=== PATIENT | female | born 1960 | race Caucasian/White ===

== ENCOUNTER 2016-12-12 13:49 | Emergency (ER) | payer BC ==
[~2016-12-12] VITALS: Ht 172.7 cm; Wt 79.8 kg
[~2016-12-12 13:49] MED LIST: ATEN50TA PO; GLIM2TAB PO; METF-380 PO; METF1000 PO; SIMV20TA3 PO; SITA1TAB2 PO; TRAM-21 PO
--- OUTSIDE RECORDS SUMMARY | 2016-12-12 13:54 | XMS REPORT | Continuity of Care Document ---
Author Author [facility] Organization [facility] Address Unknown Phone Unavailable Care Team Providers Care Parts Puller Name Role Phone NARENDRA MCCORD MD PCP Insurance Providers Payer Name Policy Number Subscriber Name Relationship [facility] [id number] Agnieszka Arzate 18 Self / Same As Patient Advance Directives Directive Response Recorded Date/Time Advance Directives No 01/15/15 10:48am Health Care Power of Senior International Tax Manager No 01/15/15 10:48am Organ Donor Yes 01/15/15 10:48am Resuscitation Status Full Code 01/15/15 10:48am Problems No known problems or medical conditions. Medications Medication Dose Route Sig Days/Qty Instructions Order Date Discontinued Date Status Simvastatin 20 Mg PO BEDTIME 07/08/11 10/17/14 Discontinued Atenolol 50 Mg PO BEDTIME 07/08/11 Active Sitagliptin Phos/Metformin Hcl 1 Each PO DAILY WITH SUPPER 07/08/11 10/17/14 Discontinued Metformin HCl (Glucophage) 1 Each PO TWICE A DAY WITH MEALS 0 Qty 10/1701/12/15 Discontinued Glimepiride 2 Mg PO DAILY 0 Qty 10/17/14 01/12/15 Discontinued Metformin Hcl 1,000 Mg PO TWICE A DAY 01/12/15 Active Glimepiride 2 Mg PO DAILY 01/12/15 Active Tramadol Hcl 100 Mg PO EVERY 12 HOURS 20 Qty 01/15/15 Active Social History Social History Problem Response Recorded Date/Time Alcohol Use Occasionally Uses 01/15/2015 10:48am Recreational Drug Use No 01/15/2015 10:48am Recent Foreign Travel No 01/15/2015 10:48am Hospitalization with Isolation Denies 01/15/2015 6:39pm Smoking Status Never a Smoker 01/15/2015 10:47am Query Response Start Date Stop Date Smoking Status Never a Smoker Hospital Discharge Instructions No hospital discharge instructions. Plan of Care No plan of care. Functional Status No functional status results. Allergies, Adverse Reactions, Alerts Allergen Type Severity Reaction Status Last Updated clavulanic acid ([id number]) Allergy Unknown Active 10/08/06 amoxicillin ([id number]) Allergy Unknown Active 10/08/06 IV Dye Adverse Reaction Unknown HIVES Active 01/15/15 Immunizations Name Given Type Date of Pneumonia Vaccine 10/12/10 Historical Vital Signs Acute Vital Signs Vital Response Date/Time Temperature (Fahrenheit) 96.8 degrees F (97.6 - 99.5) Temperature (Calculated Celsius) 36.79365 degrees C (36.4 - 37.5) Temperature Source Tympanic Pulse Rate (adult) 65 bpm (60 - 90) Respiratory Rate 18 bpm (12 - 24) O2 Sat by Pulse Oximetry 96 % (88 - 100) Blood Pressure 138/89 mm Hg Height (Feet) 5 feet Height (Inches) 9.00 inches Height (Calculated Centimeters) 175.114909 cm Weight (Pounds) 183 pounds Weight (Calculated Grams) 97859.405 gm Weight (Calculated Kilograms) 83.688236 kilograms Calculated BMI 30.45 Results Laboratory Results Test Name Result Units Flags Reference Collection Date/Time Result Date/ Time Comments Glucometer 178 MG/DL H 70-110 01/15/2015 1:30pm 01/15/2015 1:40pm Procedures Procedure Status Date Provider(s) Excision of mass completed 01/15/15 ROSALINO SIMMS MD Encounters Encounter Location Date/Time Registered [facility] Day [facility] 01/15/15 9:50am Registered Clinic [facility] 01/12/15 10:00am Registered Clinic [facility] 01/11/15 8:07am
[2016-12-12] MEDS ORDERED: LINA5TAB PO (15:29)
[2016-12-12] MEDS ORDERED: SIMV20TA3 PO (15:29)
--- NOTE | 2016-12-12 17:04 | ED Cough/URI ---
General Chief Complaint: Cough/Cold/Flu Symptoms Stated Complaint: FLU SYMPTOMS Nursing Triage Note: ON 12/09 PT DEVELOPED A NONPRODUCTIVE COUGH. PT ALSO C/O BODY ACHES. PT HAS TRIED MUCINEX AND ASA AT HOME WITHOUT RELIEF. History of Present Illness Time seen by provider: 17:01 Initial Comments Social white female presents with nonproductive persistent cough with associated myalgias and nasal congestion for the last 2 days. The patient denies associated nausea, vomiting, dysuria, shortness of breath, chest pain, or headache stiff neck. Past medical history includes previous surgeries for hysterectomy appendectomy and cholecystectomy. Allergies and Home Medications Allergies Coded Allergies: amoxicillin (Verified Allergy, Unknown, 10/08/06) clavulanic acid (Verified Allergy, Unknown, 10/08/06) Uncoded Allergies: IV Dye (Adverse Reaction, Unknown, HIVES, 01/15/15) Home Medications Atenolol 50 Mg Tablet 50 MG PO HS (Reported) Glimepiride 2 Mg Tablet 2 MG PO DAILY (Reported) Linagliptin 5 Mg Tablet 5 MG PO DAILY (Reported) Metformin Hcl 1,000 Mg Tablet 1,000 MG PO BID (Reported) Simvastatin 20 Mg Tablet 20 MG PO DAILY (Reported) Constitutional: fever weakness EENTM: No ear pain, No eye pain Respiratory: see HPI coughNo short of breath Cardiovascular: No chest pain Gastrointestinal: No abdominal pain, No diarrhea, No nausea, No vomiting Genitourinary: No dysuria, No hematuria Musculoskeletal: No back pain, muscle pain Skin: No rash Psychiatric/Neurological: No Symptoms Reported Hematologic/Lymphatic: No Symptoms Reported Immunological/Allergic: no symptoms reported Past Uuaoohl-Ugcxbi-Orxros Hx Patient Social History Alcohol Use: Rarely Uses Recreational Drug Use: No Smoking Status: Never a Smoker 2nd Hand Smoke Exposure: No Recent Foreign Travel: No Contact w/Someone Who Travel: No Recent Infectious Disease Expo: No Recent Hopitalizations: No Immunizations Up To Date Date of Pneumonia Vaccine: Oct 12, 2010 Surgeries HX Surgeries: Yes Surgeries: Appendectomy, Gallbladder, Hysterectomy Respiratory Hx Respiratory Disorders: No Cardiovascular Hx Cardiac Disorders: Yes Neurological Hx Neurological Disorders: No Reproductive System Hx Reproductive Disorders: No Genitourinary Hx Genitourinary Disorders: No Gastrointestinal Hx Gastrointestinal Disorders: Yes (GALLBLADDER AND APPENDIX TAKEN OUT) Musculoskeletal Hx Musculoskeletal Disorders: No Endocrine Hx Endocrine Disorders: Yes Endocrine Disorders: Diabetes, Non-Insulin dep HEENT HX ENT Disorders: No Cancer Hx Cancer: No Psychosocial Hx Psychiatric Problems: No Integumentary HX Skin/Integumentary Disorder: No Blood Transfusions Hx Blood Disorders: No Reviewed Nursing Assessment Reviewed/Agree w Nursing PMH: Yes Physical Exam Vital Signs Vital Sign - Last 12Hours 12/12/16 15:22 Temp 101.0 Pulse 99 Resp 20 B/P 141/107 Pulse Ox 94 O2 Delivery Room Air Capillary Refill : Less Than 3 Seconds General Appearance: WD/WN no apparent distress Eyes: Bilateral Eye Normal Inspection HEENT: normal ENT inspection TMs normal Neck: normal inspection Respiratory: lungs clear normal breath sounds no respiratory distress Cardiovascular: normal peripheral pulses regular rate, rhythm no edema Gastrointestinal: normal bowel sounds non tender soft Extremities: normal range of motion normal inspection Neurologic/Psychiatric: no motor/sensory deficits alert normal mood/affect oriented x 3 Progress/Results/Core Measures Results/Orders Lab Results Laboratory Tests Test 12/12/16 17:30 Range/Units Basophils # (Auto) 0.0 0.0-0.1 10^3/uL Basophils (%) (Auto) 0 0-10 % Eosinophils # (Auto) 0.0 0.0-0.3 10^3/uL Eosinophils (%) (Auto) 1 0-10 % Hematocrit 45 35-52 % Hemoglobin 15.8 11.5-16.0 G/DL Lymphocytes # (Auto) 1.0 1.0-4.0 X 10^3 Lymphocytes (%) (Auto) 19 12-44 % Mean Corpuscular Hemoglobin 32 25-34 PG Mean Corpuscular Hemoglobin Concent 35 32-36 G/DL Mean Corpuscular Volume 90 80-99 FL Mean Platelet Volume 10.7 H 7.4-10.4 FL Monocytes # (Auto) 0.4 0.0-1.0 X 10^3 Monocytes (%) (Auto) 7 0-12 % Neutrophils # (Auto) 3.7 1.8-7.8 X 10^3 Neutrophils (%) (Auto) 73 42-75 % Platelet Count 154 130-400 10^3/uL Red Blood Count 5.02 4.35-5.85 10^6/uL Red Cell Distribution Width 13.4 10.0-14.5 % White Blood Count 5.1 4.3-11.0 10^3/uL My Orders Orders-CHIDI STROUD MD Cbc And Manual Diff (12/12/16 17:00) Chest 1 View, Ap/Pa Only (12/12/16 17:00) Influenza A And B Antigens (12/12/16 17:00) Vital Signs/I&O Vital Sign - Last 12Hours 12/12/16 15:22 Temp 101.0 Pulse 99 Resp 20 B/P 141/107 Pulse Ox 94 O2 Delivery Room Air Blood Pressure Mean: 118 Progress Note : Time: 17:49 Progress Note The patient's flu B was positive. Her chest x-ray was clear. CBC was unremarkable. Departure Impression Impression: Primary Impression: Influenza B Disposition: 01 HOME, SELF-CARE Condition: Improved Departure-Patient Inst. Decision time for Depature: 17:50 Referrals: NAINA IRELAND MD (PCP/Family) Primary Care Physician Patient Instructions: VIRAL RESP ILLNESS-ADULT Add. Discharge Instructions: Rest at home this weekend. Tylenol alternating with ibuprofen for discomfort. Come back if any problems. Close follow-up here doctor early next week. All discharge instructions reviewed with patient and/or family. Voiced understanding. CHIDI STROUD MD Dec 12, 2016 17:04
[2016-12-12 17:33] LABS: BASOPHILS % (AUTO) 0 % (0-10); EOSINOPHILS % (AUTO) 1 % (0-10); LYMPHOCYTES % (AUTO) 19 % (12-44); MEAN CORPUSCULAR HEMOGLOBIN 32 PG (25-34); MEAN CORPUSCULAR HGB CONC 35 G/DL (32-36); MEAN CORPUSCULAR VOLUME 90 FL (80-99); MEAN PLATELET VOLUME 10.7 FL (7.4-10.4); MONOCYTES # (AUTO) 0.4 X 10^3 (0.0-1.0); MONOCYTES % (AUTO) 7 % (0-12); NEUTROPHILS # (AUTO) 3.7 X 10^3 (1.8-7.8); NEUTROPHILS % (AUTO) 73 % (42-75); PLATELET COUNT 154 10^3/uL (130-400); RED BLOOD COUNT 5.02 10^6/uL (4.35-5.85); RED CELL DISTRIBUTION WIDTH 13.4 % (10.0-14.5); WHITE BLOOD COUNT 5.1 10^3/uL (4.3-11.0)
[2016-12-12 17:49] LABS: BAND NEUTROPHILS 34 %; BASOPHILS % (MANUAL) 0 %; EOSINOPHILS % (MANUAL) 1 %; LYMPHOCYTES % (MANUAL) 20 %; NEUTROPHILS % (MANUAL) 36 %
[2016-12-12 17:56] VITALS: BP 145/93
== END 2016-12-12 17:56 | disposition home or self-care (01) ==
LOC: EDUNIT# 13:49 → ER 13:51
DX: J10.1 Influenza due to other identified influenza virus with other respiratory manifestations (principal); E11.9 Type 2 diabetes mellitus without complications; Z79.84 Long term (current) use of oral hypoglycemic drugs; Z79.899 Other long term (current) drug therapy
CPT/HCPCS: 36415; 85007; 85027; 87804; 99283

== ENCOUNTER → 2017-02-11 | Outpatient (CLI) | payer BC ==
[~2017-02-11] MED LIST changes: +LINA5TAB PO
--- NOTE | 2017-02-11 19:53 | Diagnostic Imaging Report ---
Bilateral screening mammogram The current study was also evaluated with a Computer Aided Detection (CAD) system. INDICATION: Screening. No current complaints stated on the questionnaire. COMPARISON: 01/24/2016. FINDINGS: Intramammary lymph node is seen in the outer aspect of the left breast. Benign-appearing calcifications are noted. Allowing for technique and positional differences, no suspicious change is seen. IMPRESSION: No significant change. ACR BI-RADS Category 2: Benign findings. Result letter will be mailed to the patient. Note: At least 10% of breast cancer is not imaged by mammography. Dictated by: Dictated on workstation # [id number]
== END ==
LOC: RAD 09:07
PROVIDERS: ATTEND Nurse Practitioner
DX: Z12.31 Encounter for screening mammogram for malignant neoplasm of breast (principal)
CPT/HCPCS: 77067

== ENCOUNTER → 2017-12-10 | Outpatient (CLI) | payer BC ==
--- NOTE | 2017-12-10 15:12 | Diagnostic Imaging Report ---
Indication: Lower respiratory infection PA and lateral chest Heart size and pulmonary vascular normal. Lungs are clear. There are no effusions or pneumothoraces. Impression: Negative chest Dictated by: Dictated on workstation # [id number]
== END ==
LOC: RAD 14:35
PROVIDERS: ATTEND Physician Assistant
DX: J22 Unspecified acute lower respiratory infection (principal)
CPT/HCPCS: 71046

== ENCOUNTER → 2019-03-08 | Outpatient (CLI) | payer BC ==
--- NOTE | 2019-03-08 13:10 | Diagnostic Imaging Report ---
INDICATION: Routine screening. COMPARISON: 02/26/2018 and 02/11/2017. TECHNIQUE: 2D and 3D bilateral screening mammography was performed with CAD. FINDINGS: Both breasts remain heterogeneously dense, limiting the sensitivity of mammography. Intraparenchymal lymph nodes in the upper outer aspects of both breasts are stable. There are benign parenchymal and vascular calcifications bilaterally. No dominant mass or malignant appearing microcalcifications are seen. The axillae are unremarkable. IMPRESSION: No mammographic features suspicious for malignancy are identified. ACR BI-RADS Category 2: Benign findings. Result letter will be mailed to the patient. Note: At least 10% of breast cancer is not imaged by mammography. Dictated by: Dictated on workstation # [id number]
== END ==
LOC: RAD 07:22
PROVIDERS: ATTEND Internal Medicine
DX: Z12.31 Encounter for screening mammogram for malignant neoplasm of breast (principal)
CPT/HCPCS: 77067

== ENCOUNTER → 2020-03-23 | Outpatient (CLI) | payer BC ==
[~2020-03-23] MED LIST changes: +SIMV20TA26 PO
--- NOTE | 2020-03-23 09:39 | Diagnostic Imaging Report ---
INDICATION: Routine screening. Comparison is made with prior mammogram 03/08/2019 and 02/26/2018. 2-D and 3-D bilateral screening mammography was performed with CAD. Both breasts remain heterogeneously dense, limiting the sensitivity of mammography. Benign-appearing nodules outer portions of both breasts remain stable and most suggestive of intraparenchymal lymph nodes. No new mass or malignant appearing microcalcifications are seen. Axillae are unremarkable. IMPRESSION: BI-RADS Category 2 No mammographic features suspicious for malignancy are identified. ACR BI-RADS Category 2: Benign findings. Result letter will be mailed to the patient. Note: At least 10% of breast cancer is not imaged by mammography. Dictated by: Dictated on workstation # [id number]
== END ==
LOC: RAD 07:35
PROVIDERS: ATTEND Obstetrics & Gynecology
DX: Z12.31 Encounter for screening mammogram for malignant neoplasm of breast (principal)
CPT/HCPCS: 77063; 77067

== ENCOUNTER → 2020-12-07 | Outpatient (CLI) | payer BC ==
[~2020-12-07] VITALS: Ht 175 cm; Wt 72.0 kg
[~2020-12-07] MED LIST changes: +CATHETER FLUSH 10 ML SYR IV PRN
[2020-12-07 08:17] VITALS: BP 125/81
--- NOTE | 2020-12-07 12:37 | Cardiology Stress Test Report ---
Stress Test Report Date of Procedure/Referring: Date of Procedure: Dec 07, 2020 PCP Uri Brunner DO Admitting Physician Alfredo Craft MD Indications: Coronary artery disease Baseline Vital Signs Vital Signs Date Time Temp Pulse Resp B/P (MAP) Pulse Ox O2 Delivery O2 Flow Rate FiO2 12/07/20 08:17 90 125/81 (96) 99 Summary: Patient receive a resting and stress dose of Myoview, images were acquired and reviewed in the short axis view, horizontal long axis view and vertical long axis view. TID: 0.88 SSS: 2 SDS: 1 EF: 59 1. Subtle abnormality at the inferoapical segment, there is no significant ischemia or infarction on SPECT images 2. Normal left ventricular size, EF 59 percent MADDIE POPE MD Dec 07, 2020 12:37
== END ==
LOC: CARD 07:00
PROVIDERS: ATTEND Internal Medicine
DX: I25.10 Atherosclerotic heart disease of native coronary artery without angina pectoris (principal)
CPT/HCPCS: 78452; 93017; A9502

== ENCOUNTER → 2021-04-04 | Outpatient (CLI) | payer BC ==
[~2021-04-04] MED LIST changes: -CATHETER FLUSH 10 ML SYR IV PRN
--- NOTE | 2021-04-04 10:47 | Diagnostic Imaging Report ---
INDICATION: Routine screening. COMPARISON: 03/23/2020 and 03/08/2019. TECHNIQUE: 2D and 3D bilateral screening mammography was performed with CAD. FINDINGS: Both breasts are heterogeneously dense, limiting the sensitivity of mammography. An intraparenchymal lymph node in the outer left breast appears stable. There are scattered benign parenchymal and vascular calcifications bilaterally. No spiculated mass or malignant appearing microcalcifications are seen. The axillae are unremarkable. IMPRESSION: No mammographic features suspicious for malignancy are identified. ACR BI-RADS Category 2: Benign findings. Result letter will be mailed to the patient. Note: At least 10% of breast cancer is not imaged by mammography. Dictated by: Dictated on workstation # [id number]
== END ==
LOC: RAD 07:17
PROVIDERS: ATTEND Internal Medicine
DX: Z12.31 Encounter for screening mammogram for malignant neoplasm of breast (principal)
CPT/HCPCS: 77063; 77067

== ENCOUNTER 2021-10-08 19:12 | Observation (INO) | payer BC ==
[~2021-10-08] VITALS: Ht 175 cm; Wt 72.6 kg
[2021-10-08] MEDS ORDERED: NITROGLYCERIN 0.4 MG SL TABS BTL 25'S SL PRN ×2 (19:30→23:30)
[2021-10-08] MEDS ORDERED: ONDANSETRON 4 MG/2 ML (SDV) Z0FRAN IVP ONE ×2 (19:30→20:45)
[2021-10-08] MEDS ORDERED: ASPIRIN 81 MG CHEW (CHILDREN'S ASA) PO ONE (19:30)
--- NOTE | 2021-10-08 19:35 | ED Chest Pain ---
General Chief Complaint: Chest Pain Stated Complaint: VOMITING/CHEST PAIN Source: patient History of Present Illness Date Seen by Provider: Oct 08, 2021 Time Seen by Provider: 19:23 Initial Comments PT ARRIVES VIA POV C/O MID STERNAL CHEST PAIN, RADIATING STRAIGHT THRU TO BACK C/O NAUSEA AND VOMITING PAIN BEGAN 30 MINUTES AGO, WHILE RIDING IN VEHICLE PAIN WAS 10/10, RATES 5/10 NOW NO HISTORY OF SIMILAR + SHORTNESS OF BREATH + SWEATS NO PALPITATIONS + DIZZINESS NO SYNCOPE NO SWELLING IN LEGS/FEET OR PAIN IN CALVES PT WAS SEEN YESTERDAY FOR DENTAL PAIN/ABSCESS--LEFT UPPER MOLAR AREA PRESCRIBED PENICILLIN AND HYDROCODONE NO HISTORY OF SIMILAR PROBLEMS WITH HYDROCODONE OR PENICILLIN PT IS DIABETIC, HAS NOT CHECKED BLOOD GLUCOSE TODAY PT STATES SHE HAD A CT SCAN DONE AT [facility] IN 2020 AND WAS TOLD SHE HAD "A COUPLE OF BLOCKAGES" PT HAD A STRESS TEST HERE 12/07/[address] POPE: 1. Subtle abnormality at the inferoapical segment, there is no significant ischemia or infarction on SPECT images 2. Normal left ventricular size, EF 59 percent PCP: DR. GRIMES Allergies and Home Medications Allergies Coded Allergies: amoxicillin (Verified Allergy, Unknown, 10/08/06) clavulanic acid (Verified Allergy, Unknown, 10/08/06) Uncoded Allergies: IV Dye (Adverse Reaction, Unknown, HIVES, 01/15/15) Patient Home Medication List Home Medication List Reviewed: Yes Atenolol (Tenormin 50 Mg) 50 Mg Tablet, 50 MG PO HS, (Reported) Entered as Reported by: MAGNUS GARZA on 07/08/11 0110 Glimepiride (Glimepiride) 2 Mg Tablet, 2 MG PO DAILY, (Reported) Entered as Reported by: DAMON MCDANIEL on 01/12/15 1032 Linagliptin (Tradjenta) 5 Mg Tablet, 5 MG PO DAILY, (Reported) Entered as Reported by: BRIT SALDAÑA on 12/12/16 152 Metformin Hcl (Metformin Hcl) 1,000 Mg Tablet, 1,000 MG PO BID, (Reported) Entered as Reported by: DAMON MCDANIEL on 01/12/15 1032 Simvastatin (Simvastatin) 20 Mg Tablet, 20 MG PO DAILY, (Reported) Entered as Reported by: BRIT SALDAÑA on 12/12/16 1529 Review of Systems Review of Systems Constitutional: see HPI, diaphoresis, dizziness EENTM: See HPI Respiratory: Shortness of Air Cardiovascular: See HPI, Chest Pain Gastrointestinal: See HPI; Denies Abdominal Pain; Nausea, Vomiting Genitourinary: No Symptoms Reported Musculoskeletal: see HPI, back pain Skin: no symptoms reported Psychiatric/Neurological: No Symptoms Reported Endocrine: No Symptoms Reported Hematologic/Lymphatic: No Symptoms Reported Past Xfeshff-Kfelnn-Ahwhfz Hx Patient Social History Tobacco Use?: No Substance use?: No Alcohol Use?: No Past Medical History Surgeries: Yes (LEFT ELBOW CYST 01/2015; COLONOSCOPY/POLYPECTOMY 10/2014) Appendectomy, Gallbladder, Hysterectomy, Orthopedic Respiratory: No Cardiac: Yes High Cholesterol, Hypertension Neurological: No Reproductive Disorders: No BIOINFORMATICIST History: Hysterectomy, Menopausal Genitourinary: No Gastrointestinal: Yes (S/P NIKKY AND APPY;COLONOSCOPY/POLYPECTOMY 10/2014) Polyps, Gall Bladder Disease Musculoskeletal: No Endocrine: Yes Diabetes, Non-Insulin dep HEENT: Yes (DENTAL PROBLEMS) Cancer: No Psychosocial: No Integumentary: No Blood Disorders: No Family Medical History PT HAD A STRESS TEST HERE 12/07/[address] POPE: 1. Subtle abnormality at the inferoapical segment, there is no significant ischemia or infarction on SPECT images 2. Normal left ventricular size, EF 59 percent Physical Exam Vital Signs Vital Signs - First Documented 10/08/21 19:25 Pulse 75 Resp 18 B/P (MAP) 176/104 (128) Pulse Ox 98 O2 Delivery Room Air Capillary Refill : Height, Weight, BMI Height: 5'8" Weight: 176lbs. oz. 79.855119fz; 23.51 BMI Method:Stated General Appearance: No Apparent Distress, WD/WN Neck: Normal Inspection; No Carotid Bruit, No JVD Respiratory: Chest Non Tender, Normal Breath Sounds, No Accessory Muscle Use, No Respiratory Distress Cardiovascular: Regular Rate, Rhythm, No Edema, No JVD, No Murmur, Normal Peripheral Pulses Gastrointestinal: Non Tender, Soft Extremity: Normal Inspection Neurologic/Psychiatric: Alert, Oriented x3, No Motor/Sensory Deficits, satellite tv installer II- XII Norm as Tested Skin: Normal Color, Warm/Dry Progress/Results/Core Measures Results/Orders Lab Results Laboratory Tests Test 10/08/21 19:40 10/08/21 19:54 10/08/21 20:02 Range/Units Prothrombin Time 13.2 12.2-14.7 SEC INR Comment 1.0 0.8-1.4 Activated Partial Thromboplast Time 30 24-35 SEC Glucometer 164 H 70-110 MG/DL White Blood Count 7.6 4.3-11.0 10^3/uL Red Blood Count 4.63 3.80-5.11 10^6/uL Hemoglobin 14.8 11.5-16.0 g/dL Hematocrit 43 35-52 % Mean Corpuscular Volume 92 80-99 fL Mean Corpuscular Hemoglobin 32 25-34 pg Mean Corpuscular Hemoglobin Concent 35 32-36 g/dL Red Cell Distribution Width 12.3 10.0-14.5 % Platelet Count 195 130-400 10^3/uL Mean Platelet Volume 10.8 9.0-12.2 fL Immature Granulocyte % (Auto) 1 % Neutrophils (%) (Auto) 69 42-75 % Lymphocytes (%) (Auto) 25 12-44 % Monocytes (%) (Auto) 4 0-12 % Eosinophils (%) (Auto) 1 0-10 % Basophils (%) (Auto) 1 0-10 % Neutrophils # (Auto) 5.2 1.8-7.8 10^3/uL Lymphocytes # (Auto) 1.9 1.0-4.0 10^3/uL Monocytes # (Auto) 0.3 0.0-1.0 10^3/uL Eosinophils # (Auto) 0.1 0.0-0.3 10^3/uL Basophils # (Auto) 0.0 0.0-0.1 10^3/uL Immature Granulocyte # (Auto) 0.1 0.0-0.1 10^3/uL Erythrocyte Sedimentation Rate 4 0-30 MM/HR Sodium Level 135 135-145 MMOL/L Potassium Level 3.6 3.6-5.0 MMOL/L Chloride Level 100 98-107 MMOL/L Carbon Dioxide Level 20 L 21-32 MMOL/L Anion Gap 15 H 5-14 MMOL/L Blood Urea Nitrogen 10 7-18 MG/DL Creatinine 0.67 0.60-1.30 MG/DL Estimat Glomerular Filtration Rate 90 BUN/Creatinine Ratio 15 Glucose Level 160 H 70-105 MG/DL Calcium Level 9.2 8.5-10.1 MG/DL Corrected Calcium 9.0 8.5-10.1 MG/DL Magnesium Level 1.5 L 1.6-2.4 MG/DL Total Bilirubin 0.5 0.1-1.0 MG/DL Aspartate Amino Transf (AST/SGOT) 36 H 5-34 U/L Alanine Aminotransferase (ALT/SGPT) 46 0-55 U/L Alkaline Phosphatase 74 40-136 U/L Total Creatine Kinase 85 29-168 U/L Creatine Kinase MB 2.1 <6.6 NG/ML Myoglobin 30.7 10.0-92.0 NG/ML Troponin I < 0.028 <0.028 NG/ML C-Reactive Protein High Sensitivity 0.03 0.00-0.50 MG/DL B-Type Natriuretic Peptide < 10.0 <100.0 PG/ML Total Protein 6.7 6.4-8.2 GM/DL Albumin 4.3 3.2-4.5 GM/DL Amylase Level 43 25-125 U/L Lipase 41 8-78 U/L My Orders Orders - ADRIANA FOWLER DO Ed Iv/Invasive Line Start (10/08/21 19:23) Ekg Tracing (10/08/21 19:23) O2 (10/08/21 19:23) Monitor-Rhythm Ecg Trace Only (10/08/21 19:23) Amylase (10/08/21 19:23) Cbc With Automated Diff (10/08/21 19:23) Comprehensive Metabolic Panel (10/08/21 19:23) Creatine Kinase (10/08/21 19:23) Creatine Kinase Mb (10/08/21 19:23) Hs C Reactive Protein (10/08/21 19:23) Lipase (10/08/21 19:23) Magnesium (10/08/21 19:23) Protime With Inr (10/08/21 19:23) Partial Thromboplastin Time (10/08/21 19:23) Erythrocyte Sedimentation Rate (10/08/21 19:23) Myoglobin Serum (10/08/21 19:23) Troponin I Luiza (10/08/21 19:23) Chest 1 View, Ap/Pa Only (10/08/21 19:23) Ed Iv/Invasive Line Start (10/08/21 19:23) Nitroglycerin 0.4 Mg Btl 25's (Nitrostat (10/08/21 19:30) Aspirin Chewable Tablet (Baby Aspirin Ch (10/08/21 19:30) Ondansetron Injection (Zofran Injectio (10/08/21 19:30) Ondansetron Injection (Zofran Injectio (10/08/21 20:45) Pantoprazole Injection (Protonix Injecti (10/08/21 20:45) Magnesium 1 Gm/100 Ml Ivpb (Magnesium [place] (10/08/21 20:45) Bnp [place] (10/08/21 20:37) Ct Chest Wo (10/08/21 20:48) Scopolamine Patch (Transderm-Scop Patch) (10/08/21 21:15) Medications Given in ED Current Medications Medications Dose Ordered Sig/Jose Route Start Time Stop Time Status Last Admin Dose Admin Aspirin 324 mg ONCE ONCE PO 10/08/21 19:30 10/08/21 19:31 DC 10/08/21 19:31 324 MG Magnesium Sulfate/ Dextrose 100 ml @ 100 mls/hr ONCE ONCE IV 10/08/21 20:45 10/08/21 21:44 DC 10/08/21 20:47 100 MLS/HR Nitroglycerin 0.4 mg UD PRN SL 10/08/21 19:30 10/08/21 23:27 DC 10/08/21 19:32 0.4 MG Ondansetron HCl 4 mg ONCE ONCE IVP 10/08/21 19:30 10/08/21 19:31 DC 10/08/21 19:32 4 MG Ondansetron HCl 8 mg ONCE ONCE IVP 10/08/21 20:45 10/08/21 20:46 DC 10/08/21 20:47 8 MG Pantoprazole 40 mg ONCE ONCE IV 10/08/21 20:45 10/08/21 20:46 DC 10/08/21 20:47 40 MG Scopolamine 1.5 mg ONCE ONCE TD 10/08/21 21:15 10/08/21 21:16 DC 10/08/21 21:19 1.5 MG Vital Signs/I&O 10/08/21 10/08/21 19:25 19:26 Pulse 75 Resp 18 B/P (MAP) 176/104 (128) Pulse Ox 98 97 O2 Delivery Room Air Room Air Progress Progress Note : Progress Note GIVEN ASPIRIN AND NTG SL X 3--CHEST PAIN IS GONE, STILL WITH VERY MILD BACK PAIN GIVEN ZOFRAN AND SCOPOLAMINE PATCH WITH IMPROVEMENT IN NAUSEA GIVEN MAGNESIUM Initial ECG Impression Date: Oct 08, 2021 Initial ECG Impression Time: 19:25 Initial ECG Rate: 75 Initial ECG Rhythm: Normal Sinus Initial ECG Impression: Nonspecific Changes (INFERIOR Q WAVES) Diagnostic Imaging Comments CXR--PER RADIOLOGIST REPORT AT 2017 FINDINGS: Heart size and mediastinal contours are unremarkable. There is no identified pneumothorax. There is no large pleural effusion. There is no identified focal airspace consolidation. IMPRESSION: No identified acute cardiopulmonary abnormality. CT CHEST--PER RADIOLOGIST REPORT AT 2118 FINDINGS: There is no identified pulmonary nodule or lung mass. There is no focal airspace consolidation. There is no pneumothorax. There is no pleural effusion. The central airways are patent. The heart is not enlarged. There is no pericardial effusion. There are coronary artery calcifications and additional areas of atherosclerotic disease. There is a partially calcified mass posterior to the inferior aspect of the left lobe of the thyroid in the region of the superior mediastinum on axial image 18 which measures 2.7 x 1.9 cm in size. There is no otherwise identified mediastinal mass or lymph node. There is no abnormally enlarged axillary lymph node. The imaged portions of the upper abdomen are unremarkable. There are multilevel degenerative changes of the spine. There is no identified acute bony abnormality. IMPRESSION: 1. Partially calcified superior mediastinal mass posterior to the inferior margin of the left lobe of the thyroid. Comparison imaging is not available to assess for potential stability. This may be a parathyroid origin mass. A parathyroid adenoma would be a differential diagnostic consideration. Recommend correlation and further evaluation with nuclear medicine imaging of the parathyroid, as indicated. Other neoplastic etiologies would be in the differential diagnosis. 2. No identified acute cardiopulmonary abnormality. Reviewed: Reviewed by In Departure Communication (Admissions) 2122--SPOKE WITH DR. SOSA, HOSPITALIST, ACCEPTS PT FOR ADMIT 2125--SPOKE WITH DR. RODNEY, CARDIOLOGY CONSULT. Impression Primary Impression: Chest pain Disposition: ADMITTED INPATIENT Condition: Improved Admissions Decision to Admit Reason: Admit from ER (General) Decision to Admit/Date: Oct 08, 2021 Time/Decision to Admit Time: 21:25 Departure-Patient Inst. Referrals: GRIMES,VICTOR HUGO J DO (PCP/Family) Primary Care Physician ADRIANA FOWLER DO Oct 08, 2021 19:35
[2021-10-08 20:00] LABS: PROTHROMBIN TIME PATIENT 13.2 SEC (12.2-14.7)
[2021-10-08 20:08] LABS: BASOPHILS % (AUTO) 1 % (0-10); EOSINOPHILS # (AUTO) 0.1 10^3/uL (0.0-0.3); EOSINOPHILS % (AUTO) 1 % (0-10); HEMATOCRIT 43 % (35-52); HEMOGLOBIN 14.8 g/dL (11.5-16.0); LYMPHOCYTES # (AUTO) 1.9 10^3/uL (1.0-4.0); LYMPHOCYTES % (AUTO) 25 % (12-44); MEAN CORPUSCULAR HEMOGLOBIN 32 pg (25-34); MEAN CORPUSCULAR HGB CONC 35 g/dL (32-36); MEAN CORPUSCULAR VOLUME 92 fL (80-99); MEAN PLATELET VOLUME 10.8 fL (9.0-12.2); MONOCYTES # (AUTO) 0.3 10^3/uL (0.0-1.0); MONOCYTES % (AUTO) 4 % (0-12); NEUTROPHILS # (AUTO) 5.2 10^3/uL (1.8-7.8); NEUTROPHILS % (AUTO) 69 % (42-75); PLATELET COUNT 195 10^3/uL (130-400); WHITE BLOOD COUNT 7.6 10^3/uL (4.3-11.0)
--- NOTE | 2021-10-08 20:13 | Diagnostic Imaging Report ---
EXAMINATION: Chest radiograph, portable AP view. DATE: 10/08/2021 8:09 PM INDICATION: 60-year-old female, chest pain. COMPARISON: July 08, 2011. FINDINGS: Heart size and mediastinal contours are unremarkable. There is no identified pneumothorax. There is no large pleural effusion. There is no identified focal airspace consolidation. IMPRESSION: No identified acute cardiopulmonary abnormality. Dictated by: Dictated on workstation # [id number]
[2021-10-08 20:32] LABS: ALANINE AMINOTRANSFERASE 46 U/L (0-55); ALBUMIN 4.3 GM/DL (3.2-4.5); ALKALINE PHOSPHATASE 74 U/L (40-136); AMYLASE 43 U/L (25-125); BILIRUBIN,TOTAL 0.5 MG/DL (0.1-1.0); BUN/CREATININE RATIO 15; CALCIUM 9.2 MG/DL (8.5-10.1); CARBON DIOXIDE 20 MMOL/L (21-32); CHLORIDE 100 MMOL/L (98-107); CREATINE KINASE 85 U/L (29-168); CREATININE SERUM 0.67 MG/DL (0.60-1.30); GFR ESTIMATED 90; GLUCOSE 160 MG/DL (70-105); LIPASE 41 U/L (8-78); MAGNESIUM 1.5 MG/DL (1.6-2.4); POTASSIUM 3.6 MMOL/L (3.6-5.0); SODIUM 135 MMOL/L (135-145); TOTAL PROTEIN 6.7 GM/DL (6.4-8.2)
[2021-10-08 20:38] LABS: ERYTHROCYTE SEDIMENTATION RATE 4 MM/HR (0-30)
[2021-10-08 20:40] LABS: CREATINE KINASE MB 2.1 NG/ML (<6.6)
[2021-10-08] MEDS ORDERED: MAGNESIUM 1 GM/100 ML IVPB 100 ML IV ONE (20:45)
[2021-10-08] MEDS ORDERED: PANTOPRAZOLE 40 MG (PROTONIX) VIAL IV ONE (20:45)
[2021-10-08] MEDS ORDERED: SCOPOLAMINE 1.5 MG (TRANSDERM-SCOP) PATCH TD ONE (21:15)
--- NOTE | 2021-10-08 21:18 | Diagnostic Imaging Report ---
PROCEDURE: CT chest without contrast. TECHNIQUE: Multiple contiguous axial images were obtained through the chest without the use of intravenous contrast. Auto Exposure Controls were utilized during the CT exam to meet ALARA standards for radiation dose reduction. DATE: October 08, 2021. COMPARISON: Chest radiograph October 08, 2021. INDICATION: 60-year-old female, chest and back pain. Vomiting. PROCEDURE: Axial noncontrasted CT images of the chest. Noncontrasted limits the evaluation of the mediastinum and vascular structures. FINDINGS: There is no identified pulmonary nodule or lung mass. There is no focal airspace consolidation. There is no pneumothorax. There is no pleural effusion. The central airways are patent. The heart is not enlarged. There is no pericardial effusion. There are coronary artery calcifications and additional areas of atherosclerotic disease. There is a partially calcified mass posterior to the inferior aspect of the left lobe of the thyroid in the region of the superior mediastinum on axial image 18 which measures 2.7 x 1.9 cm in size. There is no otherwise identified mediastinal mass or lymph node. There is no abnormally enlarged axillary lymph node. The imaged portions of the upper abdomen are unremarkable. There are multilevel degenerative changes of the spine. There is no identified acute bony abnormality. IMPRESSION: 1. Partially calcified superior mediastinal mass posterior to the inferior margin of the left lobe of the thyroid. Comparison imaging is not available to assess for potential stability. This may be a parathyroid origin mass. A parathyroid adenoma would be a differential diagnostic consideration. Recommend correlation and further evaluation with nuclear medicine imaging of the parathyroid, as indicated. Other neoplastic etiologies would be in the differential diagnosis. 2. No identified acute cardiopulmonary abnormality. Dictated by: Dictated on workstation # [id number]
[2021-10-08] MEDS ORDERED: ENOXAPARIN 80 MG/0.8 ML (LOVENOX) SYR SC ONE (21:30)
[2021-10-08 22:55] VITALS: BP 143/84
[2021-10-08 23:02] VITALS: BP 146/86
[2021-10-08 23:15] VITALS: BP 146/80
[2021-10-08 23:30] VITALS: BP 137/76
[2021-10-08] MEDS ORDERED: ACETAMINOPHEN 500 MG TAB (TYLENOL) PO PRN (23:30)
[2021-10-08] MEDS ORDERED: morphine INJ 4 MG/ML 1 ML (VIAL/SYRINGE) IV PRN (23:30)
[2021-10-08] MEDS ORDERED: ONDANSETRON 4 MG/2 ML (SDV) Z0FRAN IV PRN (23:30)
[2021-10-08] MEDS: D5 1/2 NS W/KCL 20 MEQ/L 1,000 ML IV SCH (23:33)
[2021-10-08 23:45] VITALS: BP 141/82
[2021-10-09] VITALS (12 sets, daily range): BP systolic 115–146; BP diastolic 77–86
[2021-10-09 04:40] LABS: BASOPHILS # (AUTO) 0.1 10^3/uL (0.0-0.1); BASOPHILS % (AUTO) 1 % (0-10); EOSINOPHILS # (AUTO) 0.1 10^3/uL (0.0-0.3); EOSINOPHILS % (AUTO) 1 % (0-10); HEMATOCRIT 40 % (35-52); LYMPHOCYTES # (AUTO) 3.3 10^3/uL (1.0-4.0); LYMPHOCYTES % (AUTO) 35 % (12-44); MEAN CORPUSCULAR HEMOGLOBIN 32 pg (25-34); MEAN CORPUSCULAR HGB CONC 35 g/dL (32-36); MEAN CORPUSCULAR VOLUME 92 fL (80-99); MEAN PLATELET VOLUME 10.8 fL (9.0-12.2); MONOCYTES # (AUTO) 0.4 10^3/uL (0.0-1.0); MONOCYTES % (AUTO) 5 % (0-12); NEUTROPHILS # (AUTO) 5.6 10^3/uL (1.8-7.8); NEUTROPHILS % (AUTO) 59 % (42-75); PLATELET COUNT 202 10^3/uL (130-400); WHITE BLOOD COUNT 9.4 10^3/uL (4.3-11.0)
[2021-10-09 04:51] LABS: POTASSIUM 3.5 MMOL/L (3.6-5.0)
[2021-10-09 04:53] LABS: CALCIUM 8.8 MG/DL (8.5-10.1)
[2021-10-09 04:57] LABS: CREATININE SERUM 0.64 MG/DL (0.60-1.30)
[2021-10-09] MEDS: inSUlin ASPART (NovoLOG) 1 UNIT/0.01 ML (CHARGE PER UNIT) SC SCH ×3 (04:57→16:00)
[2021-10-09 07:56] LABS: MAGNESIUM 2.2 MG/DL (1.6-2.4); PHOSPHORUS 4.1 MG/DL (2.3-4.7)
[2021-10-09] MEDS ORDERED: ASPIRIN E.C. 81 MG (ECOTRIN) TAB PO SCH (09:00)
[2021-10-09] MEDS ORDERED: GLIM4TAB5 PO (09:34)
[2021-10-09] MEDS ORDERED: FAMO-144 PO (09:34)
[2021-10-09] MEDS ORDERED: ATOR80TA76 PO (09:34)
[2021-10-09] MEDS ORDERED: ACHD5005 PO (09:34)
[2021-10-09] MEDS ORDERED: ATEN50TA PO (09:34)
[2021-10-09] MEDS ORDERED: AMOX500C2 PO (09:34)
[2021-10-09] MEDS ORDERED: ACET-2267 PO (09:34)
[2021-10-09] MEDS ORDERED: DOCU100T2 PO (09:34)
[2021-10-09] MEDS ORDERED: MULT-1067 PO (09:34)
[2021-10-09] MEDS ORDERED: METF-399 PO (09:34)
[2021-10-09] MEDS ORDERED: SEMA14TA PO (09:34)
[2021-10-09] MEDS ORDERED: BIMA2.5D4 OU (09:34)
[2021-10-09] MEDS: D5 1/2 NS W/KCL 20 MEQ/L 1,000 ML IV SCH (10:13)
[2021-10-09] MEDS ORDERED: PANT40TA52 PO (15:27)
[2021-10-09] MEDS ORDERED: NITR0.4T42 SL (15:27)
[2021-10-09] MEDS ORDERED: ASPI-1238 PO (15:27)
--- NOTE | 2021-10-09 15:35 | Consultation-Cardiology ---
HPI-Cardiology Cardiology Consultation: Date of Consultation 10/09/21 Date of Admission 10/08/2021 Attending Physician Adrienne White MD Admitting Physician Uri Brunner DO Consulting Physician GEO RODNEY JR, MD HPI: Time Seen by a Provider: 15:29 Chief Complaint: Reason for consultation: Chest pain I had the pleasure of seeing Agnieszka on the cardiac stepdown unit at [facility] in [place], [place] this afternoon. She has no previously known history of coronary artery disease although in November it sounds as though she underwent a coronary calcium score that was found to be abnormal. Her primary provider then had her undergo a nuclear stress test that was performed here in November and showed probably normal perfusion but with inferior attenuation artifact. Her primary provider told her she could just continue on medication and follow along. However, yesterday she was a passenger in a vehicle driving to [place] and suddenly developed nausea and vomiting. Her pulled over to the side of the road. She thinks that she vomited for about 1 hour. After vomiting the first couple of times, she developed substernal chest tightness and dyspnea. The chest tightness radiated to her right shoulder and back. She was also lightheaded but denies any syncope. After she stopped vomiting, her turned around and they were driving back home but the patient just did not feel right so they came to the emergency room. Because of her risk factors, she was admitted to the hospital for serial troponin levels and observation. Overnight, her troponin levels became borderline elevated and then started to decline. She denies any further chest discomfort since coming to the emergency room. Her shortness of breath and lightheadedness have also resolved. When she looks back on her symptoms, she feels as though this started like she was having motion sickness. However, she denies any previous history of this sort of chest discomfort in the past. She denies paroxysmal nocturnal dyspnea, vomiting, palpitations, or ankle edema. Because of the chest pain and her risk factors, a cardiology consultation was requested. Certain portions of this document may have been dictated utilizing voice recognition technology. Inherent to this technology, typographical and grammatical errors may exist. As much as I am diligent to identify and correct these mistakes, some errors may remain in the document. Review of Systems-Cardiology Review of Systems Other comments Review of 10 organ systems is as per the history of present illness, otherwise negative. [id number] Hx Patient Social History Marrital Status: Smoking Status: Never a Smoker 2nd Hand Smoke Exposure: No Have you traveled recently?: No Alcohol Use?: No Pt feels they are or have been: No Immunizations Up To Date Date of Pneumonia Vaccine: Oct 12, 2010 Past Medical History PMH As described under Assessment. Family Medical History Family Medical History: The patient does not know of any family history of premature coronary artery disease in first-degree relatives. Allergies and Home Medications Allergies Coded Allergies: amoxicillin (Verified Allergy, Unknown, 10/08/06) clavulanic acid (Verified Allergy, Unknown, 10/08/06) Uncoded Allergies: IV Dye (Adverse Reaction, Unknown, HIVES, 01/15/15) Patient Home Medication List Home Medication List Reviewed: Yes Acetaminophen (Tylenol Extra Strength) 500 Mg Tablet, 500-1,000 MG PO Q8H PRN for PAIN-MILD (1-4), (Reported) Entered as Reported by: DANYELL EARL on 10/09/21933 Last Action: Reviewed Amoxicillin (Amoxicillin) 500 Mg Capsule, 500 MG PO QID, (Reported) Entered as Reported by: DANYELL EARL on 10/09/21933 Last Action: Reviewed Aspirin (Aspirin EC) 81 Mg Tablet., 81 MG PO DAILY Prescribed by: GEO RODNEY JR, MD on 10/09/21 152 Atenolol (Atenolol) 50 Mg Tablet, 50 MG PO HS, (Reported) Entered as Reported by: DANYELL EARL on 10/09/21933 Last Action: Reviewed Atorvastatin Calcium (Atorvastatin Calcium) 80 Mg Tablet, 80 MG PO HS, (Reported) Entered as Reported by: DANYELL EARL on 10/09/21933 Last Action: Reviewed Bimatoprost (Lumigan) 2.5 Ml Drops, 1 DROP OU HS, (Reported) Entered as Reported by: DANYELL EARL on 10/09/21933 Last Action: Reviewed Docusate Sodium (Docusate Sodium) 100 Mg Tablet, 100 MG PO BID PRN for CONSTIPATION-1ST LINE, (Reported) Entered as Reported by: DANYELL EARL on 10/09/21933 Last Action: Reviewed Famotidine (Acid Plasterer Maintenance (FAMOTIDINE)) 10 Mg Tablet, 10 MG PO BID PRN for HEARTBURN, (Reported) Entered as Reported by: DANYELL EARL on 10/09/21933 Last Action: Reviewed Glimepiride (Glimepiride) 4 Mg Tablet, 4 MG PO DAILY, (Reported) Entered as Reported by: DANYELL EARL on 10/09/21933 Last Action: Reviewed Hydrocodone/Acetaminophen (Hydrocodone-Acetamin 5-325 mg) 1 Each Tablet, 1-2 EA PO Q6- 8H PRN for PAIN-MODERATE (5-7), (Reported) Entered as Reported by: DANYELL EARL on 10/09/21933 Last Action: Reviewed Metformin HCl (Metformin HCl) 1,000 Mg Tablet, 1,000 MG PO BID, (Reported) Entered as Reported by: DANYELL EARL on 10/09/21933 Last Action: Reviewed Multivitamin/Iron/Folic Acid (Centrum Adults Tablet) 1 Each Tablet, 1 EACH PO DAILY, (Reported) Entered as Reported by: DANYELL EARL on 10/09/21933 Last Action: Reviewed Nitroglycerin (Nitroglycerin) 0.4 Mg Tab.subl, 0.4 MG SL NEEDED PRN for CHEST PAIN (ANGINA) Prescribed by: GEO RODNEY JR, MD on 10/09/211526 Pantoprazole Sodium (Pantoprazole Sodium) 40 Mg Tablet.dr, 40 MG PO DAILY Prescribed by: GEO RODNEY JR, MD on 10/09/21 152 Semaglutide (Rybelsus) 14 Mg Tablet, 14 MG PO DAILY, (Reported) Entered as Reported by: DANYELL EARL on 10/09/21933 Last Action: Reviewed Discontinued Medications Atenolol (Tenormin 50 Mg) 50 Mg Tablet, 50 MG PO HS, (Reported) Discontinued Reason: Duplicate Order Entered as Reported by: MAGNUS GARZA on 07/08/11 0110 Last Action: Discontinued Glimepiride (Glimepiride) 2 Mg Tablet, 2 MG PO DAILY, (Reported) Discontinued Reason: Duplicate Order Entered as Reported by: DAMON MCDANIEL on 01/12/15 1032 Last Action: Discontinued Linagliptin (Tradjenta) 5 Mg Tablet, 5 MG PO DAILY, (Reported) Discontinued Reason: Duplicate Order Entered as Reported by: BRIT SALDAÑA on 12/12/161528 Last Action: Discontinued Metformin Hcl (Metformin Hcl) 1,000 Mg Tablet, 1,000 MG PO BID, (Reported) Discontinued Reason: Duplicate Order Entered as Reported by: DAMON MCDANIEL on 01/12/15 1032 Last Action: Discontinued Simvastatin (Simvastatin) 20 Mg Tablet, 20 MG PO DAILY, (Reported) Discontinued Reason: Duplicate Order Entered as Reported by: BRIT SALDAÑA on 12/12/161528 Last Action: Discontinued Exam Vital Signs Vital Signs Date Time Temp Pulse Resp B/P (MAP) Pulse Ox O2 Delivery O2 Flow Rate FiO2 10/09/21 13:00 78 10/09/21 12:00 36.3 12 131/80 (97) 96 Room Air 10/08/21 22:20 2.00 Physical Exam General: Alert. No acute distress. Well nourished and appears stated age. Eye: Extraocular movements are intact. Conjunctivae are clear. There are no xanthelasma. HENT: Normocephalic. Atraumatic. Carotid pulsations 2/2 without bruits. Neck: Jugular venous pressure does not appear elevated. No thyromegaly appreciated. Respiratory: Lungs are clear to auscultation. Respirations are non-labored. Breath sounds are equal. Symmetrical chest wall expansion. Cardiovascular: Normal rate. Regular rhythm. No murmur. No gallop. Point of maximal impulse is not appear displaced. Good pulses equal in all extremities. No edema. Gastrointestinal: Soft. Normal bowel sounds. Skin: Skin turgor is normal. There is no pallor. Musculoskeletal: No kyphosis or scoliosis appreciated. Neurologic: Alert and oriented to person, place, time. Cranial nerves 3-12 appear grossly intact. The patient has good motor tone strength in the upper and lower extremities bilaterally. Psychiatric: Cooperative. Appropriate mood & affect. Labs Laboratory Tests Test 10/08/21 19:40 10/08/21 19:54 10/08/21 20:02 10/09/21 04:11 Range/Units Prothrombin Time 13.2 12.2-14.7 SEC INR Comment 1.0 0.8-1.4 Activated Partial Thromboplast Time 30 24-35 SEC Glucometer 164 H 70-110 MG/DL White Blood Count 7.6 9.4 4.3-11.0 10^3/uL Red Blood Count 4.63 4.32 3.80-5.11 10^6/uL Hemoglobin 14.8 14.0 11.5-16.0 g/dL Hematocrit 43 40 35-52 % Mean Corpuscular Volume 92 92 80-99 fL Mean Corpuscular Hemoglobin 32 32 25-34 pg Mean Corpuscular Hemoglobin Concent 35 35 32-36 g/dL Red Cell Distribution Width 12.3 12.3 10.0-14.5 % Platelet Count 195 202 130-400 10^3/uL Mean Platelet Volume 10.8 10.8 9.0-12.2 fL Immature Granulocyte % (Auto) 1 0 % Neutrophils (%) (Auto) 69 59 42-75 % Lymphocytes (%) (Auto) 25 35 12-44 % Monocytes (%) (Auto) 4 5 0-12 % Eosinophils (%) (Auto) 1 1 0-10 % Basophils (%) (Auto) 1 1 0-10 % Neutrophils # (Auto) 5.2 5.6 1.8-7.8 10^3/uL Lymphocytes # (Auto) 1.9 3.3 1.0-4.0 10^3/uL Monocytes # (Auto) 0.3 0.4 0.0-1.0 10^3/uL Eosinophils # (Auto) 0.1 0.1 0.0-0.3 10^3/uL Basophils # (Auto) 0.0 0.1 0.0-0.1 10^3/uL Immature Granulocyte # (Auto) 0.1 0.0 0.0-0.1 10^3/uL Erythrocyte Sedimentation Rate 4 0-30 MM/HR Sodium Level 135 138 135-145 MMOL/L Potassium Level 3.6 3.5 L 3.6-5.0 MMOL/L Chloride Level 100 102 98-107 MMOL/L Carbon Dioxide Level 20 L 26 21-32 MMOL/L Anion Gap 15 H 10 5-14 MMOL/L Blood Urea Nitrogen 10 8 7-18 MG/DL Creatinine 0.67 0.64 0.60-1.30 MG/DL Estimat Glomerular Filtration Rate 90 95 BUN/Creatinine Ratio 15 13 Glucose Level 160 H 155 H 70-105 MG/DL Calcium Level 9.2 8.8 8.5-10.1 MG/DL Corrected Calcium 9.0 8.5-10.1 MG/DL Magnesium Level 1.5 L 2.2 1.6-2.4 MG/DL Total Bilirubin 0.5 0.1-1.0 MG/DL Aspartate Amino Transf (AST/SGOT) 36 H 5-34 U/L Alanine Aminotransferase (ALT/SGPT) 46 0-55 U/L Alkaline Phosphatase 74 40-136 U/L Total Creatine Kinase 85 29-168 U/L Creatine Kinase MB 2.1 <6.6 NG/ML Myoglobin 30.7 10.0-92.0 NG/ML Troponin I < 0.028 0.058 H <0.028 NG/ML C-Reactive Protein High Sensitivity 0.03 0.00-0.50 MG/DL B-Type Natriuretic Peptide < 10.0 <100.0 PG/ML Total Protein 6.7 6.4-8.2 GM/DL Albumin 4.3 3.2-4.5 GM/DL Amylase Level 43 25-125 U/L Lipase 41 8-78 U/L Phosphorus Level 4.1 2.3-4.7 MG/DL Triglycerides Level 169 H <150 MG/DL Cholesterol Level 124 < 200 MG/DL LDL Cholesterol Direct 71 1-129 MG/DL VLDL Cholesterol 34 5-40 MG/DL HDL Cholesterol 30 L 40-60 MG/DL Test 10/09/21 10:10 Range/Units Troponin I 0.029 H <0.028 NG/ML ECG Impression ECG Comment Sinus rhythm with nondiagnostic inferior Q waves. No acute ischemic changes. Diagnosis/Problems Diagnosis/Problems (1) Chest pain Status: Acute Assessment & Plan: The symptom was somewhat atypical in nature. This also started after she had been vomiting. I suspect this could be noncardiac chest pain, possibly related to esophageal irritation and/or spasm. She has no ischemic changes on her electrocardiogram. She has a marginally elevated troponin level. She had a nuclear stress test earlier this year that was probably normal other than some gastrointestinal attenuation artifact. On the other hand, she did also have an abnormal coronary calcium score but I do not have the results. Her chest discomfort has completely resolved. At this point, it would not be unreasonable to discharge the patient to home with early cardiology follow-up. I have started her on aspirin. She was already on beta- haydee and statin medication. I will also start her on a proton pump inhibitor. I have sent a prescription to her pharmacy for sublingual nitroglycerin in the event she has recurrent chest discomfort. I will plan to see the patient in my office for follow-up in approximately 2 weeks. I told her if she has any recurrent chest discomfort before then, she can use nitroglycerin as needed but should also report immediately to the nearest emergency room. (2) Troponin level elevated Assessment & Plan: She has marginally elevated troponin level with no changes on her electrocardiogram. Her renal function is normal so I cannot explain the elevated troponin by acute kidney injury. This marginally elevated troponin level is of unclear etiology or significance. As above, since her chest discomfort completely resolved and there were no ischemic changes on her electrocardiogram, this may be some sort of noncardiac elevation of the troponin. As above, since she is feeling better, it would not be unreasonable to discharge the patient to home. I did not think she had an acute myocardial infarction. (3) Primary hypertension Assessment & Plan: Blood pressure is well controlled on her outpatient medication. These should be continued. (4) Mixed hyperlipidemia Assessment & Plan: Her LDL level is under excellent control on her current dose of atorvastatin which should be continued. GEO RODNEY JR, MD Oct 09, 2021 15:35
--- NOTE | 2021-10-09 19:52 | Discharge Summary ---
Discharge Summary Hospital Course Problems/Dx: (1) Chest pain Status: Acute (2) Troponin level elevated Status: Acute (3) Primary hypertension Status: Chronic (4) Mixed hyperlipidemia Status: Chronic (5) Mass in neck Status: Acute Hospital Course Date of Admission: Oct 08, 2021 at 21:25 Admission Diagnosis : Family Physician/Provider: Uri Brunner DO Date of Discharge: 10/09/21 Discharge Diagnosis: [ ] Hospital Course: [ ] Labs and Pending Lab Test: Laboratory Tests 10/08/21 19:54: Glucometer 164H 10/08/21 20:02: White Blood Count 7.6, Red Blood Count 4.63, Hemoglobin 14.8, Hematocrit 43, Mean Corpuscular Volume 92, Mean Corpuscular Hemoglobin 32, Mean Corpuscular Hemoglobin Concent 35, Red Cell Distribution Width 12.3, Platelet Count 195, Mean Platelet Volume 10.8, Immature Granulocyte % (Auto) 1, Neutrophils (%) (Auto) 69, Lymphocytes (%) (Auto) 25, Monocytes (%) (Auto) 4, Eosinophils (%) (Auto) 1, Basophils (%) (Auto) 1, Neutrophils # (Auto) 5.2, Lymphocytes # (Auto) 1.9, Monocytes # (Auto) 0.3, Eosinophils # (Auto) 0.1, Basophils # (Auto) 0.0, Immature Granulocyte # (Auto) 0.1, Erythrocyte Sedimentation Rate 4, Sodium Level 135, Potassium Level 3.6, Chloride Level 100, Carbon Dioxide Level 20L, Anion Gap 15H, Blood Urea Nitrogen 10, Creatinine 0.67, Estimat Glomerular Filtration Rate 90, BUN/Creatinine Ratio 15, Glucose Level 160H, Calcium Level 9.2, Corrected Calcium 9.0, Magnesium Level 1.5L, Total Bilirubin 0.5, Aspartate Amino Transf (AST/SGOT) 36H, Alanine Aminotransferase (ALT/SGPT) 46, Alkaline Phosphatase 74, Total Creatine Kinase 85, Creatine Kinase MB 2.1, Myoglobin 30.7, Troponin I < 0.028, C-Reactive Protein High Sensitivity 0.03, B-Type Natriuretic Peptide < 10.0, Total Protein 6.7, Albumin 4.3, Amylase Level 43, Lipase 41 10/09/21 04:11: White Blood Count 9.4, Red Blood Count 4.32, Hemoglobin 14.0, Hematocrit 40, Mean Corpuscular Volume 92, Mean Corpuscular Hemoglobin 32, Mean Corpuscular Hemoglobin Concent 35, Red Cell Distribution Width 12.3, Platelet Count 202, Mean Platelet Volume 10.8, Immature Granulocyte % (Auto) 0, Neutrophils (%) (Auto) 59, Lymphocytes (%) (Auto) 35, Monocytes (%) (Auto) 5, Eosinophils (%) (Auto) 1, Basophils (%) (Auto) 1, Neutrophils # (Auto) 5.6, Lymphocytes # (Auto) 3.3, Monocytes # (Auto) 0.4, Eosinophils # (Auto) 0.1, Basophils # (Auto) 0.1, Immature Granulocyte # (Auto) 0.0, Sodium Level 138, Potassium Level 3.5L, Chloride Level 102, Carbon Dioxide Level 26, Anion Gap 10, Blood Urea Nitrogen 8, Creatinine 0.64, Estimat Glomerular Filtration Rate 95, BUN/Creatinine Ratio 13, Glucose Level 155H, Calcium Level 8.8, Magnesium Level 2.2, Troponin I 0.058H, Phosphorus Level 4.1, Triglycerides Level 169H, Cholesterol Level 124, LDL Cholesterol Direct 71, VLDL Cholesterol 34, HDL Cholesterol 30L 10/09/21 10:10: Troponin I 0.029H 10/09/21 15:50: Glucometer 180H Home Meds Active Pantoprazole Sodium 40 Mg Tablet.dr 40 Mg PO DAILY Aspirin EC (Aspirin) 81 Mg Tablet.dr 81 Mg PO DAILY Nitroglycerin 0.4 Mg Tab.subl 0.4 Mg SL NEEDED PRN 1 tablet sublingual every 5 minutes for chest pain, not to exceed 3 tablets in 15 minutes Reported Docusate Sodium 100 Mg Tablet 100 Mg PO BID PRN Acid Funding Specialist (FAMOTIDINE) (Famotidine) 10 Mg Tablet 10 Mg PO BID PRN Tylenol Extra Strength (Acetaminophen) 500 Mg Tablet 500-1,000 Mg PO Q8H PRN Centrum Adults Tablet (Multivitamin/Iron/Folic Acid) 1 Each Tablet 1 Each PO DAILY Lumigan (Bimatoprost) 2.5 Ml Drops 1 Drop OU HS Metformin HCl 1,000 Mg Tablet 1,000 Mg PO BID Rybelsus (Semaglutide) 14 Mg Tablet 14 Mg PO DAILY Atorvastatin Calcium 80 Mg Tablet 80 Mg PO HS Atenolol 50 Mg Tablet 50 Mg PO HS Glimepiride 4 Mg Tablet 4 Mg PO DAILY Hydrocodone-Acetamin 5-325 mg (Hydrocodone/Acetaminophen) 1 Each Tablet 1-2 Ea PO Q6- 8H PRN Amoxicillin 500 Mg Capsule 500 Mg PO QID FILLED 10-07-2021 #40/10 DAY SUPPLY Assessment/Pt Instructions Take medications as prescribed. Follow up with your PCP. Return with worsening symptoms. Discharge Planning: <30 minutes discharge planning Discharge Instructions Discharge Diet: No Restrictions Activity as Tolerated: Yes Consultations Cardiology Discharge Physical Examination Vital Signs Vital Signs Date Time Temp Pulse Resp B/P (MAP) Pulse Ox O2 Delivery O2 Flow Rate FiO2 10/09/21 16:38 10/09/21 16:00 36.8 79 18 96 10/09/21 12:00 Room Air 10/08/21 22:20 2.00 General Appearance: No Apparent Distress, WD/WN HEENT: PERRL/EOMI, Pharynx Normal Respiratory: Lungs Clear, Normal Breath Sounds, No Respiratory Distress Cardiovascular: Regular Rate, Rhythm, No Edema, No Murmur, Normal Peripheral Pulses Gastrointestinal: Normal Bowel Sounds, Non Tender, Soft Extremity: Normal Inspection, Non Tender, No Pedal Edema Skin: Normal Color, Warm/Dry Neurologic/Psychiatric: Alert, Oriented x3, No Motor/Sensory Deficits, Normal Mood/Affect Allergies: Coded Allergies: amoxicillin (Verified Allergy, Unknown, 10/08/06) clavulanic acid (Verified Allergy, Unknown, 10/08/06) Uncoded Allergies: IV Dye (Adverse Reaction, Unknown, HIVES, 01/15/15) Copy Copies To 1: URI BRUNNER DO Discharge Summary Date of Admission Oct 08, 2021 at 21:25 Date of Discharge Oct 09, 2021 at 17:00 Discharge Date: Oct 09, 2021 Discharge Time: 17:00 Admission Diagnosis Chest pain Consults/Procedures Consulations Cardiology Discharge Diagnosis (1) Chest pain Status: Acute Assessment & Plan: The symptom was somewhat atypical in nature. This also started after she had been vomiting. I suspect this could be noncardiac chest pain, possibly related to esophageal irritation and/or spasm. She has no ischemic changes on her electrocardiogram. She has a marginally elevated troponin level. She had a nuclear stress test earlier this year that was proba erica normal other than some gastrointestinal attenuation artifact. On the other hand, she did also have an abnormal coronary calcium score but I do not have the results. Her chest discomfort has completely resolved. At this point, it would not be unreasonable to discharge the patient to home with early cardiology follow-up. I have started her on aspirin. She was already on beta-haydee and statin medication. I will also start her on a proton pump inhibitor. I have sent a prescription to her pharmacy for sublingual nitroglycerin in the event she has recurrent chest discomfort. I will plan to see the patient in my office for follow-up in approximately 2 weeks. I told her if she has any recurrent chest discomfort before then, she can use nitroglycerin as needed but should also report immediately to the nearest emergency room. (2) Troponin level elevated Status: Acute Assessment & Plan: She has marginally elevated troponin level with no changes on her electrocardiogram. Her renal function is normal so I cannot explain the elevated troponin by acute kidney injury. This marginally elevated troponin level is of unclear etiology or significance. As above, since her chest discomfort completely resolved and there were no ischemic changes on her electrocardiogram, this may be some sort of noncardiac elevation of the trop onin. As above, since she is feeling better, it would not be unreasonable to discharge the patient to home. I did not think she had an acute myocardial infarction. (3) Primary hypertension Status: Chronic Assessment & Plan: Blood pressure is well controlled on her outpatient medication. These should be continued. (4) Mixed hyperlipidemia Status: Chronic Assessment & Plan: Her LDL level is under excellent control on her current dose of atorvastatin which should be continued. (5) Mass in neck Status: Acute Clinical Quality Measures AMI/AHF: ASA po Prior to arrival: ROMAN Johnson MD Oct 09, 2021 19:52
[2021-10-10] MEDS ORDERED: MAGNESIUM 1 GM/100 ML IVPB 100 ML IV SCH (06:00)
[2021-10-10] MEDS ORDERED: KCL 20 MEQ TAB (K-DUR) PO SCH (06:00)
[2021-10-10] MEDS ORDERED: POTASSIUM CL 10MEQ/50ML IVPB 50 ML IV SCH (06:00)
[2021-10-10] MEDS ORDERED: PANTOPRAZOLE 40 MG (PROTONIX) TAB PO SCH (09:00)
[2021-10-11] MEDS ORDERED: SCOPOLAMINE 1.5 MG (TRANSDERM-SCOP) PATCH TOP SCH (21:00)
== END 2021-10-09 17:00 | disposition home or self-care (01) ==
LOC: EDUNIT# 19:12 → ER 19:15 → CSD 21:25
PROVIDERS: ADMIT Internal Medicine; ATTEND Internal Medicine
DX: R79.89 Other specified abnormal findings of blood chemistry (principal); I10 Essential (primary) hypertension; E78.2 Mixed hyperlipidemia; R22.1 Localized swelling, mass and lump, neck; E11.9 Type 2 diabetes mellitus without complications; E78.00 Pure hypercholesterolemia, unspecified; Z79.82 Long term (current) use of aspirin; Z79.899 Other long term (current) drug therapy; Z79.891 Long term (current) use of opiate analgesic; Z79.84 Long term (current) use of oral hypoglycemic drugs
CPT/HCPCS: 36415; 71045; 71250; 80048; 80053; 80061; 82150; 82550; 82553; 82947; 83690; 83735; 83874; 83880; 84100; 84484; 85025; 85610; 85652; 85730; 86141; 93005; 93041; 93306

== ENCOUNTER → 2021-12-24 | Outpatient (CLI) | payer BC ==
[~2021-12-24] MED LIST changes: +ACET-2267 PO; +ACHD5005 PO; +AMOX500C2 PO; +ASPI-1238 PO; +ATOR80TA76 PO; +BIMA2.5D4 OU; +DOCU100T2 PO; +FAMO-144 PO; +GLIM4TAB5 PO; +METF-399 PO; +MULT-1067 PO; +NITR0.4T42 SL; +PANT40TA52 PO; +SEMA14TA PO
== END ==
LOC: LABNPT 08:25
PROVIDERS: ATTEND Thoracic Surgery (Cardiothoracic Vascular Surgery)
DX: Z20.822 Contact with and (suspected) exposure to COVID-19 (principal)
CPT/HCPCS: 87636